=== PATIENT | female | born 1990 | race Caucasian/White ===

== ENCOUNTER 2017-12-20 16:45 | Outpatient (CLI) | payer BC ==
--- NOTE | 2017-12-20 17:56 | Non Stress Test Report ---
Non Stress Test Datetime Report Generated by CPN: 12/20/2017 17:56 DEMOGRAPHIC EGA NST: 33.3 INDICATION Indication for Study: Ordered by Provider VITAL SIGNS Temperature - NST: 97.7 Pulse - NST: 79 RESP - NST: 14 NBPSYS NST: 100 NBPDIA NST: 56 MONITORING Monitor Explained: Monitor Explained; Test Explained; Patient Verbalized Understanding Time on Monitor: 12/20/2017 16:54 Time off Monitor: 12/20/2017 17:41 NST Duration: 47 NST INTERVENTIONS NST Interventions: PO Hydration Physician Notified NST: Dr Hyde BABY A: [id number] BABY A Movement : Present Contraction Frequency : none Accelerations : 15X15 Variability : Moderate 6-25bpm NST Review: Meets Criteria for Reactive NST NST Review and Verified By : D Bellavance RNC NST Results: Reactive NST REPORT Report Trigger: Send Report
== END 2017-12-20 17:44 | disposition home or self-care (01) ==
LOC: LC 16:45
PROVIDERS: ATTEND Obstetrics & Gynecology
PROC: 4A1HXCZ Monitoring of Products of Conception, Cardiac Rate, External Approach (ICD-10-PCS; principal; 2017-12-20)
DX: O47.03 False labor before 37 completed weeks of gestation, third trimester (principal); O24.419 Gestational diabetes mellitus in pregnancy, unspecified control; Z3A.33 33 weeks gestation of pregnancy
CPT/HCPCS: 59025

== ENCOUNTER 2018-01-30 06:50 | Inpatient (IN) | payer BC, OTHER ==
[2018-01-30] MEDS ORDERED: RINGERS SOLUTION,LACTATED 300 ML IV ONE (07:21)
[2018-01-30] MEDS ORDERED: RINGERS SOLUTION,LACTATED 1,000 ML IV PRN (07:21)
[2018-01-30 07:57] LABS: URINE AMPHETAMINES SCREEN NEGATIVE; URINE BARBITURATES SCREEN NEGATIVE; URINE BENZODIAZEPINES SCREEN NEGATIVE; URINE COCAINE SCREEN NEGATIVE; URINE MARIJUANA (THC) SCREEN NEGATIVE; URINE METHADONE SCREEN NEGATIVE; URINE PHENCYCLIDINE SCREEN NEGATIVE
[2018-01-30 08:08] LABS: APPEARANCE,URINE CLEAR; BILIRUBIN,URINE NEGATIVE (NEGATIVE); COLOR,URINE YELLOW; GLUCOSE, URINE NEGATIVE (NEGATIVE); KETONES,URINE NEGATIVE (NEGATIVE); LEUKOCYTE ESTERASE,URINE NEGATIVE (NEGATIVE); NITRITE,URINE NEGATIVE (NEGATIVE); PROTEIN,URINE NEGATIVE (NEGATIVE); URINE SPECIFIC GRAVITY 1.009; UROBILINOGEN,URINE NEGATIVE mg/dL (<2.0)
[2018-01-30] MEDS ORDERED: LIDOCAINE 1% INJ-PF (10 MG/ML) 30 ML SDV ONE (08:10)
[2018-01-30] MEDS ORDERED: OXYTOCIN/NORMAL SALINE 20 UNIT/1,000 ML RTUINJ ONE (08:10)
[2018-01-30] MEDS ORDERED: MISOPROSTOL 0.2 MG TABLET ONE (08:10)
[2018-01-30 08:19] LABS: HEMATOCRIT 32.4 % (36.0-47.0); HEMOGLOBIN 10.5 g/dL (12.0-15.5); MEAN CORPUSCULAR HEMOGLOBIN 19.4 pg (27.0-33.4); MEAN CORPUSCULAR HGB CONC 32.4 g/dL (32.0-36.0); PLATELET COUNT 235 10^3/uL (150-450); WHITE BLOOD COUNT 9.7 10^3/uL (4.0-10.5)
[2018-01-30 08:24] LABS: MEAN CORPUSCULAR VOLUME 60 fl (80-97)
--- NOTE | 2018-01-30 08:29 | Admission Physical ---
Datetime Report Generated by CPN: 01/30/2018 08:29 CURRENT ADMISSION Chief Complaint: Scheduled Induction of Labor Indication for Induction: Maternal Diabetes Indication for Induction- Other: GDM on Glyburide Admit Impression : Term, Intrauterine ; Induction of Labor Admit Plan: Admit to Unit; Initiate Labor Induction Protocol ALLERGIES Medication Allergies: Yes Medication Allergies: hydrocodone (01/30/2018); acetaminophen (01/30/2018) Latex: No Latex Allergies Food Allergies: N/A Environmental Allergies: N/A OBSTETRICAL HISTORY EDC: 02/04/2018 00:00 : 1 Para: 0 Term: 0 : 0 SAB: 0 IAB: 0 Ectopic: 0 Livin Cesareans: 0 VBACs: 0 Multiple Births: 0 Gestational Diabetes: Yes Rh Sensitization: No Incompetent Cervix: No BARRIE: No Infertility: No ART Treatment: No Uterine Anomaly: No IUGR: No Hx Previous C/S: No Macrosomia: No Hx Loss/Stillborn: No PIH: No Hx : No Placenta Previa/Abruption: No Depression/PP Depression: No PTL/PROM: No Post Hemorrhage: No Current Procedures: Ultrasound Obstetrical History Comments: G1- current, GDM on glyburide SEE RECORDS Alcohol: No Marijuana : No Cocaine: No Other Illicit Drugs: No Cigarettes: Former Smoker. 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 Surgery: No Heart Disease: No Hosp/Surgery: No Autoimmune Disorder: No Anesthetic Complications: No Kidney Disease: No Abnormal Pap Smear: Yes Neuro/Epilepsy: No Psychiatric Disorders: No Other Medical Diseases: Yes Hepatitis/Liver Disease: No Significant Family History: No Varicosities/Phlebitis: No Trauma/Violence : No Thyroid Dysfunction: No Medical History Comments: abnormal pap 2015, beta thalassemia INFECTIOUS HISTORY Gonorrhea: No Genital Herpes: No Chlamydia: No Tuberculosis: No Syphilis: No Hepatitis: No HIV/AIDS Exposure: No Rash or Viral Illness: No HPV: No PHYSICAL EXAM General: Normal HEENT: Normal Neurologic: Normal Thyroid: Deferred Heart: Normal Lungs: Normal Breast: Deferred Back: Normal Abdomen: Normal Genitourinary Exam: Deferred Extremities: Normal DTRs: Normal Pelvic Type: Not Done Vital Signs: Reviewed; Within Normal Limits VAGINAL EXAM Dilatation: 2 Effacement: 50 Station: -2 MEMBRANES Membranes: Intact FETUS A EGA: 39.2 Monitoring: External US FHR- Baseline: 135 Variability: Moderate 6-25bpm Accelerations: 15X15 Decelerations: None FHR Category: Category I Presentation: Vertex Admit Comment: G1 Beta Thalassemia Minor-followed by Hematology GDM on Glyburide Antepartum records on chart-reviewed Pitocin IOL planned PLANS FOR LABOR AND DELIVERY Labor and Delivery: None Pain Management: Epidural Feeding Preference: Breast Benefit of Breast Feed Discussed: Yes Circumcision: Yes INFORMED CONSENT Assignment: Crystal Hyde MD Signature: with User ID: Alon : with User ID: Alon : I personally evaluated and examined the patient in conjunction with the MLP and agree with the assessment, treatment plan and disposition.
[2018-01-30] MEDS: OXYTOCIN/NORMAL SALINE 20 UNIT/1,000 ML RTUINJ IV PRN (08:31)
[2018-01-30 08:50] LABS: ABSOLUTE LYMPHOCYTES# (MANUAL) 1.6 10^3/uL (0.5-4.7); ABSOLUTE MONOCYTES # (MANUAL) 0.5 10^3/uL (0.1-1.4); ABSOLUTE NEUTROPHILS# (MANUAL) 7.5 10^3/uL (1.7-8.2); ANISOCYTOSIS 1+; BAND NEUTROPHILS % (MANUAL) 1 % (3-5); BASOPHILS % (MANUAL) 0 % (0-2); EOSINOPHILS % (MANUAL) 2 % (0-6); HYPOCHROMASIA 1+; LYMPHOCYTES % (MANUAL) 16 % (13-45); MONOCYTES % (MANUAL) 5 % (3-13); OVALOCYTES 2+; POIKILOCYTOSIS 2+; POLYCHROMASIA 2+; SEGMENTED NEUTROPHILS % (MAN) 76 % (42-78); TEAR DROP CELLS SLIGHT; TOTAL CELLS COUNTED 100; TOXIC GRANULATION SLIGHT
[2018-01-30 08:51] LABS: PLATELET COMMENT ADEQUATE
[2018-01-30] MEDS ORDERED: DINOPROSTONE 10 MG VAGINAL INSERT.SR PV ONE (18:11)
[2018-01-30] MEDS ORDERED: DINOPROSTONE 10 MG VAGINAL INSERT.SR ONE (18:55)
[2018-01-31] MEDS ORDERED: OXYTOCIN/NORMAL SALINE 20 UNIT/1,000 ML RTUINJ ONE (08:56)
[2018-01-31] MEDS: OXYTOCIN/NORMAL SALINE 20 UNIT/1,000 ML RTUINJ IV PRN (09:07)
--- NOTE | 2018-01-31 10:53 | L&D Progress Notes ---
PROGRESS NOTES Datetime Report Generated by CPN: 01/31/2018 10:53 PROGRESS NOTE Impression: Reassuring Heart Rate Plan: Continue Present Management; Induction Comment: pt OOB walking in halls, deceleration x 6 minutes, mod variability, maternal pulse ox on, irreg uc's, Pitocin off, back to bed, will monitor closely VAGINAL EXAM Dilatation: 2 Effacement: 50 Station: -2 MEMBRANES Membranes: Intact FETUS A : 39.2 Presentation: Vertex SIGNATURE SIGNATURE: [id number] SIGNATURE: ,[id number] SIGNATURE: [id number] Assignment: Faith Woo MD Signature: with User ID: [email or web address] : with User ID: Betsey : I personally evaluated and examined the patient in conjunction with the MLP and agree with the assessment, treatment plan and disposition.
--- NOTE | 2018-01-31 12:42 | L&D Progress Notes ---
PROGRESS NOTES Datetime Report Generated by CPN: 01/31/2018 12:42 PROGRESS NOTE Impression: Reassuring Heart Rate Plan: Continue Present Management; Induction Informed Consent Obtained: Vaginal Delivery Vital Signs : Reviewed Comment: Cat 1 strip, walking in halls, starting to feel uc's FETUS A Monitoring: External US FETUS C SIGNATURE: [id number] Assignment: Faith Woo MD Signature: with User ID: [email or web address] : with User ID: Betsey
--- NOTE | 2018-01-31 13:41 | L&D Progress Notes ---
PROGRESS NOTES Datetime Report Generated by CPN: 01/31/2018 13:41 PROGRESS NOTE Impression: Reassuring Heart Rate; Rupture of Membranes Procedures: Sterile Vag Exam Plan: Continue Present Management; Induction Comment: VE = 3/60/vtx/, AROM, clear fluid, irreg uc's, Cat 1 strip POC discussed, plans on epidural MEMBRANES Membranes: Ruptured Amniotic Fluid Color: Clear FETUS A Monitoring: External US FETUS C SIGNATURE: ,[id number] Assignment: Faith Woo MD Signature: with User ID: Betsey : with User ID: Betsey
[2018-01-31] MEDS ORDERED: FENTANYL CITRATE INJ/PF 100 MCG/2 ML AMPUL ONE (13:46)
[2018-01-31] MEDS ORDERED: PHENYLEPHRINE HCL INJ/PF 10 MG/1 ML SDV ONE (13:46)
[2018-01-31] MEDS ORDERED: EPHEDRINE SULFATE INJ 50 MG/1 ML AMPULE ONE (13:46)
[2018-01-31] MEDS ORDERED: BUPIVACAINE HCL 0.25 % INJ/PF (2.5 MG/1 ML) 30 ML VIAL ONE (13:47)
[2018-01-31] MEDS ORDERED: FENTANYL/BUPIVACAINE/NS/PF 200 MCG/100 ML RTUINJ EPI ONE (13:47)
[2018-01-31] MEDS ORDERED: LIDOCAINE 1% INJ-PF (10 MG/ML) 30 ML SDV ONE (14:55)
[2018-01-31] MEDS ORDERED: MAG HYDROX/AL HYDROX/SIMETH SUSP 30 ML UDCUP ONE (15:58)
[2018-01-31] MEDS ORDERED: AMPICILLIN SOD/SULBACTAM 3 GM VIAL ONE (23:03)
[2018-01-31] MEDS ORDERED: OXYTOCIN/NORMAL SALINE 20 UNIT/1,000 ML RTUINJ IV PRN (23:11)
[2018-01-31] MEDS ORDERED: MEASLES,MUMPS&RUBELLA VACC/PF 0.5 ML VIAL SUBCUT PRN (23:11)
[2018-01-31] MEDS ORDERED: ZOLPIDEM TARTRATE 5 MG TABLET PO PRN (23:11)
[2018-01-31] MEDS ORDERED: DIBUCAINE 1% OINTMENT 28 GM TP PRN (23:11)
[2018-01-31] MEDS ORDERED: DIPH/PERTUSS(ACELL)/TETANUS VAC/PF 0.5 ML SYR (>=10YO) IM PRN (23:11)
[2018-01-31] MEDS ORDERED: ACETAMINOPHEN WITH CODEINE #3 TABLET PO PRN ×2 (23:11)
[2018-01-31] MEDS ORDERED: BENZOCAINE/MENTHOL AEROSOL SPRAY 56 ML TOP PRN (23:11)
--- NOTE | 2018-01-31 23:23 | Warning Signs in Babies ---
VOD Warning Signs Datetime Report Generated by [facility]: 01/31/2018 23:23 VOD#608 -Warning Signs in Babies: Needs to be viewed. (12/20/2017 17:22:aLura Jo RN)
--- NOTE | 2018-01-31 23:41 | Delivery Summary ---
Del Sum A-C Datetime Report Generated by CPN: 01/31/2018 23:41 DELIVERY PERSONNEL DELIVERY PERSONNEL: [id number] Delivery Doctor:: Faith Woo MD Labor and Delivery Nurse:: Kaylyn Walter RNveterinary surgeon Nurse:: Laura Jesusmartha, NALINI Relief Man/PRODUCTIVITY ENGINEER: d[address] MATERNAL INFORMATION Delivery Anesthesia: Epidural Medications After Delivery: Pitocin Drip 20 Units/1000ml NSS Maternal Complications: Chorioamnionitis LABOR SUMMARY EDC: 02/04/2018 00:00 No. Babies in Womb: 1 Attempted: No Labor Anesthesia: Epidural LABOR INFORMATION Reason for Induction: Maternal Diabetes Onset of Labor: 01/31/2018 13:33 Complete Dilatation: 01/31/2018 21:25 Cervical Ripening Agents: Cervidil Oxytocin: Induction Group B Beta Strep: negative Antibiotics # of Doses: 1 Antibiotics Time of Last Dose: 2313 Name of Antibiotic Given: unasyn 3 grams after delivery for chorio Steroids Given: None Reason Steroids Not Administered: Not Applicable MEMBRANES Membranes Rupture Method: Artificial Rupture of Membranes: 01/31/2018 13:33 Length of Rupture (hr): 9.35 Amniotic Fluid Color: Clear Amniotic Fluid Amount: Small Amniotic Fluid Odor: Normal STAGES OF LABOR Stage 1 hr: 7 Stage 1 min: 52 Stage 2 hr: 1 Stage 2 min: 29 Stage 3 hr: 0 Stage 3 min: 3 Total Time in Labor hr: 9 Total Time in Labor min: 24 VAGINAL DELIVERY Episiotomy: None Laceration #1: Perineal Laceration Extension #1: Second Degree Laceration Repair: Yes Sponge Count Correct: Yes Sharps Count Correct: Yes (Annotations: Data stored by [facility] on behalf of user) CSECTION DELIVERY Primary Indication: N/A Secondary Indication: N/A CSection Incision: N/A BABY A INFORMATION Delivery Date/Time: 01/31/2018 22:54 Method of Delivery: Vaginal Born in Route : No : N/A Forceps: N/A Vacuum Extraction: N/A Shoulder Dystocia : No PRESENTATION/POSITION BABY A Presentation: Cephalic Cephalic Presentation: Vertex Vertex Position: Right Occipital Anterior Breech Presentation: N/A PLACENTA INFORMATION BABY A Placenta Delivery Time : 01/31/2018 22:57 Placenta Method of Delivery: Spontaneous Placenta Status: Delivered SCORES BABY A Heart Rate 1 min: >100 bpm Resp Effort 1 min: Good Cry Reflex Irritability 1 min: Cough or Sneeze or Pulls Away Muscle Tone 1 min: Active Motion Color 1 min: Blue/Pale Resuscitation Effort 1 min: Tactile Stimulation SCORE 1 MIN: 8 Heart Rate 5 min: >100 bpm Resp Effort 5 min: Good Cry Reflex Irritability 5 min: Cough or Sneeze or Pulls Away Muscle Tone 5 min: Active Motion Color 5 min: Body [place], Extremities Blue Resuscitation Effort 5 min: Tactile Stimulation SCORE 5 MIN: 9 INFANT INFORMATION BABY A Gestational Age at Delivery: 39.3 Gestational Status: Full Term- 39- 40.6 Weeks Outcome : Liveborn Condition : Stable Infant Sex: Male IDENTIFICATION BABY A Infant Verification Date/Time: 01/31/2018 22:59 ID Band Number: [id number] Mother's Name Verified: Yes Infant RN Verifying : B. Ring _ K. Arvind WEIGHT/LENGTH BABY A Infant Birthweight (gm): 3775 Infant Weight (lb): 8 Infant Weight (oz): 5 Length (in): 21.00 Length (cm): 53.34 CORD INFORMATION BABY A No. Cord Vessels: 3 Nuchal Cord : N/A Cord Blood Taken: Yes-For Storage (Mom's Blood type +) Infant Suction: Mouth; Nose ASSESSMENT BABY A Complications: Multiple Late Decels; Multiple Variable Decels Physical Findings at Delivery: Caput Succedaneum Respirations: Tachypnea Skin to Skin: Yes Pile Driving Setter/ALS Called : No Infant Care By: rn alba Transferred To: Remains with Mother BABY B INFORMATION : N/A SIGNATURES : I personally evaluated and examined the patient in conjunction with the MLP and agree with the assessment, treatment plan and disposition.
[2018-02-01] MEDS ORDERED: AMPICILLIN SOD/SULBACTAM 3 GM VIAL IV PRN ×2 (00:09→19:22)
[2018-02-01] MEDS ORDERED: IBUPROFEN 800 MG TABLET ONE (00:54)
[2018-02-01] MEDS ORDERED: ACETAMINOPHEN WITH CODEINE #3 TABLET ONE (00:54)
[2018-02-01] MEDS: IBUPROFEN 800 MG TABLET PO SCH ×3 (06:55→22:56)
[2018-02-01] MEDS ORDERED: AMPICILLIN SOD/SULBACTAM 3 GM VIAL IV SCH (07:00)
[2018-02-01 07:21] LABS: HEMATOCRIT 31.9 % (36.0-47.0); HEMOGLOBIN 10.2 g/dL (12.0-15.5); MEAN CORPUSCULAR HEMOGLOBIN 19.2 pg (27.0-33.4); MEAN CORPUSCULAR HGB CONC 31.9 g/dL (32.0-36.0); MEAN CORPUSCULAR VOLUME 60 fl (80-97); PLATELET COUNT 210 10^3/uL (150-450); RED BLOOD COUNT 5.29 10^6/uL (3.72-5.28); RED CELL DISTRIBUTION WIDTH 16.3 % (11.5-14.0)
[2018-02-01 08:00] LABS: WHITE BLOOD COUNT 24.3 10^3/uL (4.0-10.5)
--- NOTE | 2018-02-01 09:25 | PDOC PROGRESS REPORT ---
Subjective-OB Progress Note for:: 02/01/18 Subjective: Doing well, no c/o, OOB, voiding, , mod lochia Physical Exam (OB) Vital Signs: Temp Pulse Resp BP Pulse Ox 97.9 F 69 18 112/47 L 99 02/01/18 07:59 02/01/18 07:59 02/01/18 07:59 02/01/18 07:59 02/01/18 07:59 Intake & Output 01/31/18 02/01/18 02/02/18 06:59 06:59 06:59 Weight 84.2 kg - PIH/Pre-Eclampsia DTR's: 2 + Clonus: Negative Epigastric Pain: No Visual Changes: No - Lochia Lochia Amount: Scant < 10 ml Lochia Color: Rubra/Red - Abdomen Description: Tender, Soft Hernia Present: No Fundal Description: Firm Fundal Height: u/u - u/2 Objective-Diagnostic Laboratory: 02/01/18 06:38 02/01/18 06:38 WBC 24.3 H D RBC 5.29 H Hgb 10.2 L Hct 31.9 L MCV 60 L MCH 19.2 L MCHC 31.9 L RDW 16.3 H Plt Count 210 Assessment and Plan(PN) - Assessment and Plan (1) Normal vaginal delivery Is this a current diagnosis for this admission?: Yes (2) Gestational diabetes mellitus (GDM) controlled on oral hypoglycemic drug Qualifiers: Trimester: second trimester Qualified Code(s): O24.415 - Gestational diabetes mellitus in , controlled by oral hypoglycemic drugs Is this a current diagnosis for this admission?: Yes - Time Spent with Patient Time with patient: Less than 15 minutes Medications reviewed and adjusted accordingly: Yes - Disposition Anticipated Discharge: Home Within: within 24 hours
[2018-02-01] MEDS: PRENATAL VITAMIN W DHA CAPSULE PO SCH (10:06)
[2018-02-01] MEDS: SENNOSIDES/DOCUSATE 8.6-50 MG 1 EACH TABLET PO SCH (10:08)
[2018-02-01] MEDS: DOCUSATE SODIUM 100 MG CAPSULE PO SCH ×2 (10:09→17:23)
[2018-02-01] MEDS: FERROUS SULFATE 325 MG TABLET PO SCH ×2 (10:10→17:23)
[2018-02-01] MEDS ORDERED: AMPICILLIN SODIUM/SULBACTAM NA 3 GM in NORMAL SALINE 100 ML IV ONE (19:30)
[2018-02-02] MEDS: IBUPROFEN 800 MG TABLET PO SCH (05:26)
[2018-02-02 07:44] VITALS: BP 119/66
[2018-02-02 07:59] LABS: HEMATOCRIT 31.3 % (36.0-47.0); HEMOGLOBIN 9.8 g/dL (12.0-15.5); MEAN CORPUSCULAR HGB CONC 31.2 g/dL (32.0-36.0); MEAN CORPUSCULAR VOLUME 61 fl (80-97); PLATELET COUNT 212 10^3/uL (150-450); RED BLOOD COUNT 5.14 10^6/uL (3.72-5.28); RED CELL DISTRIBUTION WIDTH 16.1 % (11.5-14.0); WHITE BLOOD COUNT 15.9 10^3/uL (4.0-10.5)
[2018-02-02] MEDS: FERROUS SULFATE 325 MG TABLET PO SCH (08:59)
[2018-02-02] MEDS: SENNOSIDES/DOCUSATE 8.6-50 MG 1 EACH TABLET PO SCH (09:00)
[2018-02-02] MEDS: DOCUSATE SODIUM 100 MG CAPSULE PO SCH (09:00)
[2018-02-02] MEDS: PRENATAL VITAMIN W DHA CAPSULE PO SCH (09:01)
--- NOTE | 2018-02-02 09:38 | PDOC PROGRESS REPORT ---
Subjective-OB Progress Note for:: 02/02/18 Subjective: Doing well, wants to go home if baby can go, late labs, , voiding, ambulating Physical Exam (OB) Vital Signs: Temp Pulse Resp BP Pulse Ox 98.0 F 78 16 119/66 100 02/02/18 07:41 02/02/18 07:41 02/02/18 07:41 02/02/18 07:41 02/02/18 07:41 Intake & Output 02/01/18 02/02/18 02/03/18 06:59 06:59 06:59 Intake Total 100 Balance 100 - PIH/Pre-Eclampsia DTR's: 2 + Clonus: Negative Epigastric Pain: No Visual Changes: No - Lochia Lochia Amount: Scant < 10 ml Lochia Color: Rubra/Red - Abdomen Description: Soft, Round Hernia Present: No Fundal Description: Firm, Midline Fundal Height: u/u - u/2 Objective-Diagnostic Laboratory: 02/02/18 07:33 02/02/18 07:33 WBC 15.9 H RBC 5.14 Hgb 9.8 L Hct 31.3 L MCV 61 L MCH 19.0 L MCHC 31.2 L RDW 16.1 H Plt Count 212 Assessment and Plan(PN) - Assessment and Plan (1) Normal vaginal delivery Is this a current diagnosis for this admission?: Yes (2) Gestational diabetes mellitus (GDM) controlled on oral hypoglycemic drug Qualifiers: Trimester: second trimester Qualified Code(s): O24.415 - Gestational diabetes mellitus in , controlled by oral hypoglycemic drugs Is this a current diagnosis for this admission?: Yes - Time Spent with Patient Time with patient: Less than 15 minutes Medications reviewed and adjusted accordingly: Yes - Disposition Anticipated Discharge: Home Within: Other - home today
--- NOTE | 2018-02-02 09:43 | PDOC DISCHARGE SUMMARY ---
Final Diagnosis Discharge Date: 02/02/18 - Final Diagnosis (1) Normal vaginal delivery Is this a current diagnosis for this admission?: Yes (2) Gestational diabetes mellitus (GDM) controlled on oral hypoglycemic drug Is this a current diagnosis for this admission?: Yes Discharge Data - Discharge Medication Home Medications: Vit/Iron Fum/Folic AC [ Tablet] 1 tab PO DAILY 12/20/17 Ferrous Sulfate [Feosol 325 mg Tablet] 325 mg PO BID tablet 02/02/18 Ibuprofen [Motrin 800 mg Tablet] 800 mg PO Q8 tablet 02/02/18 Gestational Age: 39.3 Reason(s) for Admission: Onset of Labor Procedures: NST, Ultrasound Intrapartum Procedure(s): Spontaneous Vaginal Delivery Complication(s): Laceration-Perineal Laceration-Degree: 2nd - Data Baby 1 Male at 1 minute: 8 at 5 minutes: 9 Weight: 3.77 kg Home with Mother: Yes Complications: No - Diagnosis Test Laboratory: Temp Pulse Resp BP Pulse Ox 98.0 F 78 16 119/66 100 02/02/18 07:41 02/02/18 07:41 02/02/18 07:41 02/02/18 07:41 02/02/18 07:41 01/30/18 01/30/18 02/01/18 07:04 07:43 06:38 RBC 5.40 H 5.29 H Hgb 10.5 L 10.2 L Hct 32.4 L 31.9 L Urine Opiates Screen NEGATIVE 02/02/18 07:33 RBC 5.14 Hgb 9.8 L Hct 31.3 L Urine Opiates Screen - Discharge information/Instructions Discharge Activity: Activity As Tolerated, No Lifting Over 10 Pounds, No Lifting /Push/Pulling, Pelvic Rest Discharge Diet: As Tolerated Disposition: HOME, SELF-CARE Follow up with: [facility] in: 4, Weeks
== END 2018-02-02 10:15 | disposition home or self-care (01) | DRG 775 ==
LOC: LR 06:50 → 2S 02-01 01:01
PROVIDERS: ADMIT Student in an Organized Health Care Education/Training Program; ATTEND Student in an Organized Health Care Education/Training Program
PROC: 4A1HXCZ Monitoring of Products of Conception, Cardiac Rate, External Approach (ICD-10-PCS; 2018-01-30)
PROC: 10E0XZZ Delivery of Products of Conception, External Approach (ICD-10-PCS; principal; 2018-01-31)
PROC: 0KQM0ZZ Repair Perineum Muscle, Open Approach (ICD-10-PCS; 2018-01-31)
PROC: 3E0P7VZ Introduction of Hormone into Female Reproductive, Via Natural or Artificial Opening (ICD-10-PCS; 2018-01-31)
PROC: 3E033VJ Introduction of Other Hormone into Peripheral Vein, Percutaneous Approach (ICD-10-PCS; 2018-01-31)
PROC: 10907ZC Drainage of Amniotic Fluid, Therapeutic from Products of Conception, Via Natural or Artificial Opening (ICD-10-PCS; 2018-01-31)
DX: O24.425 Gestational diabetes mellitus in childbirth, controlled by oral hypoglycemic drugs (principal); O41.1230 Chorioamnionitis, third trimester, not applicable or unspecified; O70.1 Second degree perineal laceration during delivery; Z88.6 Allergy status to analgesic agent; Z3A.39 39 weeks gestation of pregnancy; Z37.0 Single live birth; Z87.891 Personal history of nicotine dependence
CPT/HCPCS: 36415; 80307; 81001; 82962; 85025; 85027; 86592; 86850; 86900; 86901; J0295; J2370; J2590; J3010; J3490

== ENCOUNTER → 2018-06-06 | Outpatient (CLI) | payer OTHER ==
[2018-06-06 09:38] VITALS: BP 110/65
[2018-06-06 10:37] LABS: HEMATOCRIT 37.4 % (36.0-47.0); HEMOGLOBIN 12.1 g/dL (12.0-15.5); MEAN CORPUSCULAR HEMOGLOBIN 19.2 pg (27.0-33.4); MEAN CORPUSCULAR HGB CONC 32.4 g/dL (32.0-36.0); MEAN CORPUSCULAR VOLUME 59 fl (80-97); PLATELET COUNT 272 10^3/uL (150-450); RED BLOOD COUNT 6.31 10^6/uL (3.72-5.28); RED CELL DISTRIBUTION WIDTH 15.2 % (11.5-14.0); WHITE BLOOD COUNT 6.5 10^3/uL (4.0-10.5)
[2018-06-06 10:52] LABS: APPEARANCE,URINE SLIGHTLY-CLOUDY; BILIRUBIN,URINE NEGATIVE (NEGATIVE); COLOR,URINE YELLOW; GLUCOSE, URINE NEGATIVE (NEGATIVE); KETONES,URINE NEGATIVE (NEGATIVE); LEUKOCYTE ESTERASE,URINE LARGE (NEGATIVE); NITRITE,URINE NEGATIVE (NEGATIVE); PROTEIN,URINE NEGATIVE (NEGATIVE); URINE SPECIFIC GRAVITY 1.011; UROBILINOGEN,URINE NEGATIVE mg/dL (<2.0)
== END ==
LOC: OD 10:07 → EDSTATUS 07-17 10:00
PROVIDERS: ATTEND Obstetrics & Gynecology
DX: Z01.812 Encounter for preprocedural laboratory examination (principal); Z01.818 Encounter for other preprocedural examination
CPT/HCPCS: 36415; 81001; 85027